=== PATIENT | female | born 1955 | race African-American/Black ===

== ENCOUNTER 2017-05-10 06:02 | Inpatient (IN) ==
[~2017-05-10 06:02] MED LIST: CLINDAMYCIN INJ 50 ML IV ONE; CLINDAMYCIN INJ 900 MG in PREMIX 1 EACH IV ONE; LACTATED RINGERS 1,000 ML IV SCH; VANCOMYCIN 1,000 MG VIAL ONE
[2017-05-10] MEDS ORDERED: IPRATROPIUM 500 MCG/2.5 ML NEB RESP TX ONE (06:28)
[2017-05-10] MEDS ORDERED: TRANEXAMIC ACID 1,000 MG/10 ML VIAL IV ONE (06:28)
[2017-05-10] MEDS ORDERED: ALBUTEROL 2.5 MG/3 ML NEB RESP TX ONE (06:28)
[2017-05-10] MEDS ORDERED: DIAZEPAM 5 MG TABLET PO ONE (06:28)
[2017-05-10] MEDS ORDERED: FAMOTIDINE 20 MG TABLET PO ONE (06:28)
[2017-05-10] MEDS ORDERED: NEOSTIGMINE 10 MG/10 ML VIAL ONE (06:39)
[2017-05-10] MEDS ORDERED: BACITRACIN OINT 0.9 GM PACK TOP ONE (06:40)
[2017-05-10] MEDS ORDERED: VANCOMYCIN INJ 1,000 MG in SODIUM CHLORIDE 0.9% 250 ML IV ONE ×2 (07:00→18:00)
[2017-05-10] MEDS ORDERED: ceFAZolin 1,000 MG in SYRINGE 1 EACH IV ONE (07:00)
[2017-05-10] MEDS: LACTATED RINGERS 1,000 ML IV SCH ×3 (07:10→14:36)
[2017-05-10] MEDS ORDERED: MAGNESIUM HYDROXIDE SUSP 30 ML UDCUP PO PRN (07:19)
[2017-05-10] MEDS ORDERED: oxyCODONE IR 5 MG TABLET PO PRN ×2 (07:19)
[2017-05-10] MEDS ORDERED: MORPHINE 2 MG/1 ML SYRINGE IV PRN ×2 (07:19)
[2017-05-10] MEDS ORDERED: diphenhydrAMINE CAP 25 MG CAPSULE PO PRN (07:19)
[2017-05-10] MEDS ORDERED: ZALEPLON 5 MG CAPSULE PO PRN (07:19)
[2017-05-10] MEDS ORDERED: ONDANSETRON 4 MG/2 ML VIAL IV PRN ×2 (07:19→08:59)
[2017-05-10] MEDS ORDERED: HYDROmorphone 2 MG/1 ML VIAL ONE (09:00)
[2017-05-10] MEDS: HYDROmorphone 2 MG/1 ML VIAL IV PRN ×4 (09:00→09:20)
[2017-05-10 09:31] LABS: Apearance,Urine CLEAR (Clear); Bilirubin,Urine Negative (Negative); Blood, Urine Negative (Negative); Glucose,Urine (UA) Negative (Negative); Ketones,Urine Negative (Negative); Mucus,Urine Occasional /LPF (Occasional); Nitrite,Urine Negative (Negative); Protein,Urine Negative; RBC,Urine <1 /HPF (0-4); Squamous Epithelial Cell,Urine Occasional /HPF (0-10); Urine Color Straw (Yellow); Urine Urobilinogen < 2.0 EU/DL (0.2-1.0); WBC,Urine <1 /HPF (0-6)
[2017-05-10] MEDS ORDERED: LABETALOL 20 MG/4 ML SYRINGE IV ONE (09:35)
[2017-05-10] MEDS ORDERED: PROPOFOL 200 MG/20 ML VIAL IV ONE (09:35)
[2017-05-10] MEDS ORDERED: ACETAMINOPHEN 1,000 MG/100 ML VIAL IV ONE (09:36)
[2017-05-10] MEDS ORDERED: fentaNYL 100 MCG/2 ML VIAL ONE (09:36)
[2017-05-10] MEDS ORDERED: SEVOFLURANE 1 UNIT/15 MINUTE INH ONE (09:36)
[2017-05-10] MEDS ORDERED: LABETALOL 100 MG/20 ML VIAL IV ONE (09:36)
[2017-05-10] MEDS ORDERED: GLYCOPYRROLATE 0.4 MG/2 ML VIAL ONE (09:36)
[2017-05-10] MEDS ORDERED: MIDAZOLAM 2 MG/2 ML VIAL ONE (09:36)
[2017-05-10] MEDS ORDERED: LACTATED RINGERS 1,000 ML IV ONE (09:36)
[2017-05-10] MEDS ORDERED: ROCURONIUM 100 MG/10 ML VIAL IV ONE (09:36)
[2017-05-10] MEDS ORDERED: DEXAMETHASONE 10 MG/1 ML VIAL ONE (09:36)
[2017-05-10] MEDS ORDERED: SODIUM CHLORIDE 0.9% 100 ML IV ONE (09:37)
[2017-05-10] MEDS: ACETAMINOPHEN 500 MG TABLET PO SCH ×3 (13:43→23:52)
[2017-05-10] MEDS: KETOROLAC 30 MG/1 ML VIAL IV SCH ×3 (13:45→21:35)
[2017-05-10] MEDS: CLINDAMYCIN INJ 900 MG in PREMIX 1 EACH IV SCH ×2 (13:51→21:39)
[2017-05-10] MEDS: amLODIPine 10 MG TABLET PO SCH (18:21)
[2017-05-10] MEDS: DOCUSATE SODIUM 100 MG CAPSULE PO SCH ×2 (18:21→21:39)
[2017-05-10] MEDS: GABAPENTIN 300 MG CAPSULE PO SCH ×2 (18:21→21:39)
[2017-05-10] MEDS: ATENOLOL/CHLORTHALIDONE 50-25 MG TABLET PO SCH (18:22)
[2017-05-10] MEDS: tiZANidine 4 MG TABLET PO SCH (18:22)
[2017-05-11] MEDS: FONDAPARINUX 2.5 MG/0.5 ML SYRINGE SUBCUT SCH (06:00)
[2017-05-11] MEDS: ACETAMINOPHEN 500 MG TABLET PO SCH (06:01)
[2017-05-11 06:51] LABS: Basophils % 0.1 % (0.0-0.8); Hematocrit 26.3 VOL% (35.7-47.0); Hemoglobin 8.9 GM/DL (12.0-16.0); Immature Granulocytes % 0.6 %; Immature Granulocytes Absolute 0.07 #; Lymphocytes # 1.5 10*3/uL (1.4-4.0); Lymphocytes % 13.3 % (21.3-54.2); Mean Corpuscular HGB Conc 33.8 GM/DL (32-36); Mean Corpuscular Hemoglobin 29 PG (27-34); Mean Corpuscular Volume 85.7 FL (87-102); Mean Platelet Volume 12.4 FL (9.6-12.0); Monocytes # 1.5 10*3/uL (0.11-0.8); Monocytes % 13.3 % (1.7-12.7); Neutrophils % 72.7 % (38.7-73.9); Platelet Count 186 T/CUMM (130-400); Red Blood Count 3.07 MC/CUMM (3.8-5.5); Red Cell Distribution Width 14.9 % (9.3-17.3)
[2017-05-11 07:19] LABS: Calcium 8.3 MG/DL (8.5-10.1); Osmolality,Calculated 283.4 MOS/KG (273-304); Potassium 3.7 MMOL/L (3.5-5.1)
[2017-05-11] MEDS: KETOROLAC 30 MG/1 ML VIAL IV SCH (07:29)
[2017-05-11] MEDS ORDERED: KETOROLAC 30 MG/1 ML VIAL IV SCH (07:30)
[2017-05-11] MEDS: DOCUSATE SODIUM 100 MG CAPSULE PO SCH ×2 (08:38→21:44)
[2017-05-11] MEDS: GABAPENTIN 300 MG CAPSULE PO SCH ×2 (08:38→21:44)
[2017-05-11] MEDS: ATENOLOL/CHLORTHALIDONE 50-25 MG TABLET PO SCH (08:39)
[2017-05-11] MEDS: tiZANidine 4 MG TABLET PO SCH (08:40)
[2017-05-11] MEDS: amLODIPine 10 MG TABLET PO SCH (08:40)
[2017-05-11] MEDS: CELECOXIB 200 MG CAPSULE PO SCH (14:15)
[2017-05-12] MEDS: FONDAPARINUX 2.5 MG/0.5 ML SYRINGE SUBCUT SCH (05:55)
[2017-05-12 06:24] LABS: Basophils % 0.2 % (0.0-0.8); Eosinophils # 0.1 10*3/uL (0.0-0.87); Eosinophils % 1.4 % (0.00-10.9); Hematocrit 25.2 VOL% (35.7-47.0); Hemoglobin 8.4 GM/DL (12.0-16.0); Immature Granulocytes % 0.7 %; Immature Granulocytes Absolute 0.07 #; Lymphocytes # 3.1 10*3/uL (1.4-4.0); Lymphocytes % 30.2 % (21.3-54.2); Mean Corpuscular HGB Conc 33.3 GM/DL (32-36); Mean Corpuscular Hemoglobin 29 PG (27-34); Mean Corpuscular Volume 87.8 FL (87-102); Mean Platelet Volume 12.1 FL (9.6-12.0); Monocytes # 1.4 10*3/uL (0.11-0.8); Monocytes % 13.9 % (1.7-12.7); Neutrophils # 5.5 10*3/uL (1.4-7.4); Neutrophils % 53.6 % (38.7-73.9); Platelet Count 177 T/CUMM (130-400); Red Blood Count 2.87 MC/CUMM (3.8-5.5); Red Cell Distribution Width 15.3 % (9.3-17.3); White Blood Count 10.3 T/CUMM (4-12)
[2017-05-12] MEDS: tiZANidine 4 MG TABLET PO SCH (09:53)
[2017-05-12] MEDS: GABAPENTIN 300 MG CAPSULE PO SCH (09:53)
[2017-05-12] MEDS: DOCUSATE SODIUM 100 MG CAPSULE PO SCH (09:53)
[2017-05-12] MEDS: ATENOLOL/CHLORTHALIDONE 50-25 MG TABLET PO SCH (09:54)
[2017-05-12] MEDS: CELECOXIB 200 MG CAPSULE PO SCH (09:54)
[2017-05-12] MEDS: amLODIPine 10 MG TABLET PO SCH (09:56)
[2017-05-12 11:34] VITALS: BP 129/60
== END 2017-05-12 12:45 | disposition home health service (06) | DRG 470 ==
LOC: N.SDSINP 06:02 → N.3E 10:07
PROVIDERS: ADMIT Orthopaedic Surgery; ATTEND Orthopaedic Surgery

== ENCOUNTER 2017-08-16 05:31 | Inpatient (IN) ==
[2017-08-09 11:31] LABS: Basophils # 0.1 10*3/uL (0.0-0.2); Basophils % 0.8 % (0.0-0.8); Eosinophils # 0.5 10*3/uL (0.0-0.87); Eosinophils % 8.4 % (0.00-10.9); Hematocrit 32.9 VOL% (35.7-47.0); Hemoglobin 10.2 GM/DL (12.0-16.0); Immature Granulocytes % 0.2 %; Immature Granulocytes Absolute 0.01 #; Lymphocytes % 32.5 % (21.3-54.2); Mean Corpuscular Hemoglobin 27 PG (27-34); Mean Corpuscular Volume 85.7 FL (87-102); Mean Platelet Volume 12.4 FL (9.6-12.0); Monocytes # 0.6 10*3/uL (0.11-0.8); Monocytes % 9.6 % (1.7-12.7); Neutrophils # 2.9 10*3/uL (1.4-7.4); Neutrophils % 48.5 % (38.7-73.9); Platelet Count 185 T/CUMM (130-400); Red Blood Count 3.84 MC/CUMM (3.8-5.5); Red Cell Distribution Width 15.9 % (9.3-17.3); White Blood Count 6.1 T/CUMM (4-12)
[2017-08-09 11:39] LABS: PT Patient Result 10.2 SECS; Partial Thromboplastin Time 24.7 SECS (0-40)
[2017-08-09 11:42] LABS: Apearance,Urine Slightly Hazy (Clear); Bilirubin,Urine Negative (Negative); Blood, Urine Negative (Negative); Glucose,Urine (UA) Negative (Negative); Hyaline Casts,Urine 15 /LPF (0-3); Ketones,Urine Negative (Negative); Mucus,Urine Occasional /LPF (Occasional); Nitrite,Urine Negative (Negative); Protein,Urine Negative; RBC,Urine <1 /HPF (0-4); Squamous Epithelial Cell,Urine Occasional /HPF (0-10); Urine Color Yellow (Yellow); Urine Specific Gravity 1.019 (1.001-1.035); Urine Urobilinogen < 2.0 EU/DL (0.2-1.0); WBC,Urine <1 /HPF (0-6)
[2017-08-09 11:55] LABS: Albumin 3.9 G/DL (3.4-5.0); Bilirubin,Total 0.4 MG/DL (0.2-1.0); Calcium 9.1 MG/DL (8.5-10.1); Potassium 3.9 MMOL/L (3.5-5.1); Total Protein 7.4 G/DL (6.4-8.3)
[2017-08-16] MEDS ORDERED: ALBUTEROL/IPRATROPIUM 3 ML NEB RESP TX ONE (06:00)
[2017-08-16] MEDS ORDERED: GABAPENTIN 400 MG CAPSULE PO ONE (06:00)
[2017-08-16] MEDS ORDERED: DIAZEPAM 5 MG TABLET PO ONE ×2 (06:00→07:00)
[2017-08-16] MEDS ORDERED: FAMOTIDINE 20 MG TABLET PO ONE ×2 (06:00→07:00)
[2017-08-16] MEDS ORDERED: ACETAMINOPHEN 500 MG TABLET PO ONE (06:00)
[2017-08-16] MEDS ORDERED: VANCOMYCIN 1,000 MG VIAL ONE (06:15)
[2017-08-16] MEDS ORDERED: CLINDAMYCIN INJ 50 ML IV ONE (06:15)
[2017-08-16] MEDS ORDERED: CLINDAMYCIN INJ 900 MG in PREMIX 1 EACH IV ONE (06:30)
[2017-08-16] MEDS ORDERED: VANCOMYCIN INJ 1,000 MG in SODIUM CHLORIDE 0.9% 250 ML IV ONE ×2 (06:30→18:00)
[2017-08-16] MEDS ORDERED: BACITRACIN OINT 0.9 GM PACK TOP ONE (06:35)
[2017-08-16] MEDS ORDERED: TRANEXAMIC ACID 1,000 MG/10 ML VIAL ONE (06:35)
[2017-08-16] MEDS ORDERED: FAMOTIDINE 20 MG TABLET ONE (06:41)
[2017-08-16] MEDS ORDERED: ACETAMINOPHEN 500 MG TABLET ONE (06:41)
[2017-08-16] MEDS ORDERED: GABAPENTIN 400 MG CAPSULE ONE (06:41)
[2017-08-16] MEDS ORDERED: DIAZEPAM 5 MG TABLET ONE (06:42)
[2017-08-16] MEDS: LACTATED RINGERS 1,000 ML IV SCH ×4 (06:45→17:30)
[2017-08-16] MEDS ORDERED: MORPHINE 4 MG/1 ML VIAL IV PRN ×2 (09:18)
[2017-08-16] MEDS ORDERED: ZALEPLON 5 MG CAPSULE PO PRN (09:18)
[2017-08-16] MEDS ORDERED: oxyCODONE IR 5 MG TABLET PO PRN (09:18)
[2017-08-16] MEDS ORDERED: diphenhydrAMINE CAP 25 MG CAPSULE PO PRN (09:18)
[2017-08-16] MEDS ORDERED: MAGNESIUM HYDROXIDE SUSP 30 ML UDCUP PO PRN (09:18)
[2017-08-16] MEDS ORDERED: SEVOFLURANE 1 UNIT/15 MINUTE INH ONE (09:42)
[2017-08-16] MEDS ORDERED: PROPOFOL 200 MG/20 ML VIAL IV ONE (09:42)
[2017-08-16] MEDS ORDERED: LIDOCAINE 1% 5 ML VIAL ONE (09:42)
[2017-08-16] MEDS ORDERED: fentaNYL 100 MCG/2 ML VIAL ONE (09:43)
[2017-08-16] MEDS ORDERED: ACETAMINOPHEN 1,000 MG/100 ML VIAL IV ONE (09:43)
[2017-08-16] MEDS ORDERED: MIDAZOLAM 2 MG/2 ML VIAL ONE (09:43)
[2017-08-16] MEDS ORDERED: PROPOFOL 500 MG/50 ML BOTTLE IV ONE (09:43)
[2017-08-16] MEDS ORDERED: PHENYLEPHRINE 1 MG/10 ML SYRINGE IV ONE (09:43)
[2017-08-16] MEDS ORDERED: LACTATED RINGERS 1,000 ML IV ONE (09:44)
[2017-08-16] MEDS ORDERED: ROCURONIUM 100 MG/10 ML VIAL IV ONE (09:44)
[2017-08-16 09:46] LABS: Apearance,Urine CLEAR (Clear); Bilirubin,Urine Negative (Negative); Blood, Urine Negative (Negative); Glucose,Urine (UA) Negative (Negative); Ketones,Urine Negative (Negative); Mucus,Urine Occasional /LPF (Occasional); Nitrite,Urine Negative (Negative); Protein,Urine Negative; RBC,Urine 2 /HPF (0-4); Urine Color Straw (Yellow); Urine Urobilinogen < 2.0 EU/DL (0.2-1.0); WBC,Urine <1 /HPF (0-6)
[2017-08-16] MEDS ORDERED: ONDANSETRON 4 MG/2 ML VIAL IV PRN (09:53)
[2017-08-16] MEDS ORDERED: HYDROmorphone 2 MG/1 ML VIAL ONE (09:53)
[2017-08-16] MEDS ORDERED: ONDANSETRON 4 MG/2 ML VIAL ONE (09:53)
[2017-08-16] MEDS: HYDROmorphone 2 MG/1 ML VIAL IV PRN ×4 (09:55→10:10)
[2017-08-16] MEDS: KETOROLAC 30 MG/1 ML VIAL IV SCH ×3 (10:08→22:44)
[2017-08-16] MEDS ORDERED: KETOROLAC 30 MG/1 ML VIAL ONE (10:08)
[2017-08-16] MEDS: CLINDAMYCIN INJ 900 MG in PREMIX 1 EACH IV SCH ×2 (14:03→22:44)
[2017-08-16] MEDS: ACETAMINOPHEN 500 MG TABLET PO SCH ×2 (14:04→20:21)
[2017-08-16] MEDS: tiZANidine 4 MG TABLET PO SCH ×2 (15:21→20:22)
[2017-08-16] MEDS: ONDANSETRON 4 MG/2 ML VIAL IV PRN (15:21)
[2017-08-16] MEDS: oxyCODONE IR 5 MG TABLET PO PRN (19:04)
[2017-08-16] MEDS: DOCUSATE SODIUM 100 MG CAPSULE PO SCH (20:22)
[2017-08-16] MEDS: GABAPENTIN 300 MG CAPSULE PO SCH (20:22)
[2017-08-16] MEDS: BUDESONIDE/FORMOTEROL 160-4.5 INHALER 6 GM INH SCH (21:55)
[2017-08-17] MEDS: LACTATED RINGERS 1,000 ML IV SCH ×3 (00:45→17:55)
[2017-08-17] MEDS: ACETAMINOPHEN 500 MG TABLET PO SCH ×2 (02:54→08:12)
[2017-08-17] MEDS: oxyCODONE IR 5 MG TABLET PO PRN (02:56)
[2017-08-17] MEDS: KETOROLAC 30 MG/1 ML VIAL IV SCH (03:58)
[2017-08-17] MEDS ORDERED: FONDAPARINUX 2.5 MG/0.5 ML SYRINGE SUBCUT SCH (06:00)
[2017-08-17 06:21] LABS: Calcium 7.7 MG/DL (8.5-10.1); Potassium 3.5 MMOL/L (3.5-5.1)
[2017-08-17 07:15] LABS: Basophils % 0.1 % (0.0-0.8); Eosinophils # 0.1 10*3/uL (0.0-0.87); Eosinophils % 0.8 % (0.00-10.9); Hematocrit 25.1 VOL% (35.7-47.0); Immature Granulocytes % 0.4 %; Immature Granulocytes Absolute 0.03 #; Lymphocytes # 1.5 10*3/uL (1.4-4.0); Lymphocytes % 17.8 % (21.3-54.2); Mean Corpuscular HGB Conc 31.9 GM/DL (32-36); Mean Corpuscular Hemoglobin 27 PG (27-34); Mean Corpuscular Volume 85.1 FL (87-102); Mean Platelet Volume 12.9 FL (9.6-12.0); Monocytes # 0.9 10*3/uL (0.11-0.8); Monocytes % 10.7 % (1.7-12.7); Neutrophils # 5.8 10*3/uL (1.4-7.4); Neutrophils % 70.2 % (38.7-73.9); Platelet Count 139 T/CUMM (130-400); Red Blood Count 2.95 MC/CUMM (3.8-5.5); Red Cell Distribution Width 16.3 % (9.3-17.3); White Blood Count 8.3 T/CUMM (4-12)
[2017-08-17] MEDS: ONDANSETRON 4 MG/2 ML VIAL IV PRN (08:12)
[2017-08-17] MEDS ORDERED: PROMETHAZINE 25 MG/1 ML VIAL ONE (08:26)
[2017-08-17] MEDS ORDERED: PROMETHAZINE 25 MG/1 ML VIAL IM PRN (08:33)
[2017-08-17] MEDS ORDERED: CHLORTHALIDONE 25 MG TABLET PO SCH (09:00)
[2017-08-17] MEDS: tiZANidine 4 MG TABLET PO SCH ×3 (09:06→21:22)
[2017-08-17] MEDS: amLODIPine 10 MG TABLET PO SCH (09:07)
[2017-08-17] MEDS: ATENOLOL 50 MG TABLET PO SCH (09:07)
[2017-08-17] MEDS: MONTELUKAST 10 MG TABLET PO SCH (09:07)
[2017-08-17] MEDS: GABAPENTIN 300 MG CAPSULE PO SCH ×2 (09:07→21:22)
[2017-08-17] MEDS: ALLOPURINOL 300 MG TABLET PO SCH (09:08)
[2017-08-17] MEDS: DOCUSATE SODIUM 100 MG CAPSULE PO SCH ×2 (09:08→21:22)
[2017-08-17] MEDS: CHOLECALCIFEROL 1,000 UNIT TABLET PO SCH (09:09)
[2017-08-17] MEDS: BUDESONIDE/FORMOTEROL 160-4.5 INHALER 6 GM INH SCH ×2 (09:12→21:21)
[2017-08-17] MEDS ORDERED: CELECOXIB 200 MG CAPSULE PO SCH (15:19)
[2017-08-18] MEDS: LACTATED RINGERS 1,000 ML IV SCH ×2 (01:08→10:10)
[2017-08-18 07:21] LABS: Mean Corpuscular Hemoglobin 28 PG (27-34); Monocytes # 0.8 10*3/uL (0.11-0.8)
[2017-08-18 07:33] LABS: Basophils % 0.1 % (0.0-0.8); Eosinophils # 0.4 10*3/uL (0.0-0.87); Eosinophils % 4.2 % (0.00-10.9); Hematocrit 21.8 VOL% (35.7-47.0); Hemoglobin 7.2 GM/DL (12.0-16.0); Immature Granulocytes % 0.5 %; Immature Granulocytes Absolute 0.04 #; Lymphocytes # 1.9 10*3/uL (1.4-4.0); Lymphocytes % 21.5 % (21.3-54.2); Mean Corpuscular Volume 83.8 FL (87-102); Mean Platelet Volume 13.1 FL (9.6-12.0); Monocytes % 8.5 % (1.7-12.7); Neutrophils # 5.8 10*3/uL (1.4-7.4); Neutrophils % 65.2 % (38.7-73.9); Platelet Count 131 T/CUMM (130-400); Red Cell Distribution Width 16.5 % (9.3-17.3); White Blood Count 8.9 T/CUMM (4-12)
[2017-08-18 08:03] LABS: Calcium 7.7 MG/DL (8.5-10.1); Osmolality,Calculated 293.1 MOS/KG (273-304); Potassium 3.5 MMOL/L (3.5-5.1)
[2017-08-18] MEDS: MONTELUKAST 10 MG TABLET PO SCH (09:40)
[2017-08-18] MEDS: tiZANidine 4 MG TABLET PO SCH ×3 (09:40→21:12)
[2017-08-18] MEDS: ALLOPURINOL 300 MG TABLET PO SCH (09:41)
[2017-08-18] MEDS: DOCUSATE SODIUM 100 MG CAPSULE PO SCH ×2 (09:41→21:12)
[2017-08-18] MEDS: GABAPENTIN 300 MG CAPSULE PO SCH ×2 (09:41→21:11)
[2017-08-18] MEDS: BUDESONIDE/FORMOTEROL 160-4.5 INHALER 6 GM INH SCH ×2 (09:42→21:10)
[2017-08-18] MEDS: ATENOLOL 50 MG TABLET PO SCH (09:42)
[2017-08-18] MEDS: amLODIPine 10 MG TABLET PO SCH (10:10)
[2017-08-18] MEDS: CHOLECALCIFEROL 1,000 UNIT TABLET PO SCH (10:48)
[2017-08-18] MEDS ORDERED: SODIUM CHLORIDE 0.9% 1,000 ML IV PRN (11:06)
[2017-08-18] MEDS ORDERED: LACTATED RINGERS 1,000 ML IV SCH (11:30)
[2017-08-19 07:09] LABS: Basophils % 0.2 % (0.0-0.8); Eosinophils # 0.4 10*3/uL (0.0-0.87); Eosinophils % 3.6 % (0.00-10.9); Hematocrit 28.7 VOL% (35.7-47.0); Immature Granulocytes % 0.6 %; Immature Granulocytes Absolute 0.07 #; Lymphocytes % 16.4 % (21.3-54.2); Mean Corpuscular HGB Conc 32.8 GM/DL (32-36); Mean Corpuscular Hemoglobin 28 PG (27-34); Mean Corpuscular Volume 84.9 FL (87-102); Mean Platelet Volume 12.6 FL (9.6-12.0); Monocytes % 8.4 % (1.7-12.7); Neutrophils # 8.6 10*3/uL (1.4-7.4); Neutrophils % 70.8 % (38.7-73.9); Platelet Count 147 T/CUMM (130-400); Red Cell Distribution Width 16.2 % (9.3-17.3)
[2017-08-19 07:11] LABS: Hemoglobin 9.4 GM/DL (12.0-16.0); Red Blood Count 3.38 MC/CUMM (3.8-5.5); White Blood Count 12.2 T/CUMM (4-12)
[2017-08-19 07:19] LABS: Calcium 8.5 MG/DL (8.5-10.1); Potassium 3.8 MMOL/L (3.5-5.1)
[2017-08-19] MEDS ORDERED: FUROSEMIDE 40 MG/4 ML VIAL IV ONE (07:56)
[2017-08-19] MEDS ORDERED: LEVOFLOXACIN INJ 250 MG in PREMIX 1 EACH IV SCH (08:00)
[2017-08-19] MEDS: amLODIPine 10 MG TABLET PO SCH (08:22)
[2017-08-19] MEDS: tiZANidine 4 MG TABLET PO SCH ×3 (08:22→20:35)
[2017-08-19] MEDS: DOCUSATE SODIUM 100 MG CAPSULE PO SCH ×2 (08:23→20:35)
[2017-08-19] MEDS: hydrALAZINE 25 MG TABLET PO SCH ×2 (08:23→20:34)
[2017-08-19] MEDS: MONTELUKAST 10 MG TABLET PO SCH (08:23)
[2017-08-19] MEDS: GABAPENTIN 300 MG CAPSULE PO SCH ×2 (08:23→20:35)
[2017-08-19] MEDS: CHOLECALCIFEROL 1,000 UNIT TABLET PO SCH (08:23)
[2017-08-19] MEDS: ATENOLOL 50 MG TABLET PO SCH (08:23)
[2017-08-19] MEDS: ALLOPURINOL 300 MG TABLET PO SCH (08:24)
[2017-08-19] MEDS: methylPREDNISolone SOD SUC 40 MG/1 ML VIAL IV SCH ×2 (08:36→20:37)
[2017-08-19] MEDS: ONDANSETRON 4 MG/2 ML VIAL IV PRN (08:38)
[2017-08-19] MEDS: BUDESONIDE/FORMOTEROL 160-4.5 INHALER 6 GM INH SCH ×2 (08:45→20:34)
[2017-08-19] MEDS ORDERED: ACETAMINOPHEN 325 MG TABLET PO PRN (09:40)
[2017-08-19] MEDS: ASPIRIN EC 325 MG TABLET PO SCH (10:29)
[2017-08-19] MEDS: ALBUTEROL/IPRATROPIUM 3 ML NEB RESP TX SCH (14:20)
[2017-08-20] MEDS: ALBUTEROL/IPRATROPIUM 3 ML NEB RESP TX SCH ×2 (00:16→07:20)
[2017-08-20 06:03] LABS: Calcium 8.8 MG/DL (8.5-10.1); Potassium 3.6 MMOL/L (3.5-5.1)
[2017-08-20] MEDS ORDERED: methylPREDNISolone ACETATE 40 MG/1 ML VIAL IM ONE (07:58)
[2017-08-20] MEDS ORDERED: LEVOFLOXACIN 250 MG TABLET PO SCH (09:00)
[2017-08-20] MEDS: hydrALAZINE 25 MG TABLET PO SCH (09:51)
[2017-08-20] MEDS: DOCUSATE SODIUM 100 MG CAPSULE PO SCH (09:52)
[2017-08-20] MEDS: ASPIRIN EC 325 MG TABLET PO SCH (09:52)
[2017-08-20] MEDS: amLODIPine 10 MG TABLET PO SCH (09:52)
[2017-08-20] MEDS: GABAPENTIN 300 MG CAPSULE PO SCH (09:52)
[2017-08-20] MEDS: CHOLECALCIFEROL 1,000 UNIT TABLET PO SCH (09:53)
[2017-08-20] MEDS: ALLOPURINOL 300 MG TABLET PO SCH (09:53)
[2017-08-20] MEDS: ATENOLOL 50 MG TABLET PO SCH (09:53)
[2017-08-20] MEDS: tiZANidine 4 MG TABLET PO SCH ×2 (09:53→14:46)
[2017-08-20] MEDS: MONTELUKAST 10 MG TABLET PO SCH (09:53)
[2017-08-20] MEDS: BUDESONIDE/FORMOTEROL 160-4.5 INHALER 6 GM INH SCH (09:58)
[2017-08-20 11:11] VITALS: BP 151/74
== END 2017-08-20 15:35 | disposition home health service (06) | DRG 470 ==
LOC: N.OR 05:31 → N.SDSINP 05:32 → EDBD 07:30 → N.3E 08:14
PROVIDERS: ADMIT Orthopaedic Surgery; ATTEND Orthopaedic Surgery

== ENCOUNTER 2021-11-19 05:46 | Observation (INO) ==
[2021-11-19] MEDS ORDERED: fentaNYL 100 MCG/2 ML VIAL ONE (06:06)
[2021-11-19] MEDS ORDERED: LIDOCAINE 2% 5 ML VIAL ONE (06:06)
[2021-11-19] MEDS ORDERED: ONDANSETRON 4 MG/2 ML VIAL ONE ×2 (06:06→10:14)
[2021-11-19] MEDS ORDERED: DEXAMETHASONE 4 MG/1 ML VIAL ONE ×3 (06:06→10:14)
[2021-11-19] MEDS ORDERED: MIDAZOLAM 2 MG/2 ML VIAL ONE (06:07)
[2021-11-19] MEDS ORDERED: propofoL 200 MG/20 ML VIAL IV ONE (06:09)
[2021-11-19] MEDS ORDERED: CLINDAMYCIN INJ 900 MG/50 ML PREMIX IV ONE (06:30)
[2021-11-19] MEDS ORDERED: VANCOMYCIN INJ 1,000 MG in SODIUM CHLORIDE 0.9% 250 ML IV ONE (06:30)
[2021-11-19] MEDS ORDERED: ROPIVACAINE 0.5% 30 ML VIAL ONE (06:32)
[2021-11-19] MEDS ORDERED: GABAPENTIN 400 MG CAPSULE ONE (06:35)
[2021-11-19] MEDS ORDERED: ACETAMINOPHEN 500 MG TABLET ONE (06:35)
[2021-11-19] MEDS ORDERED: FAMOTIDINE 20 MG TABLET ONE (06:35)
[2021-11-19 06:36] LABS: INR 0.9; PT Patient Result 10.5 SECS (10.1-12.1); Partial Thromboplastin Time 28.2 SECS (23.7-32.9)
[2021-11-19] MEDS ORDERED: FAMOTIDINE 20 MG TABLET PO ONE (06:37)
[2021-11-19] MEDS ORDERED: GABAPENTIN 400 MG CAPSULE PO ONE (06:37)
[2021-11-19] MEDS ORDERED: ACETAMINOPHEN 500 MG TABLET PO ONE (06:37)
[2021-11-19] MEDS ORDERED: ALBUTEROL/IPRATROPIUM 3 ML NEB RESP TX STA (06:50)
[2021-11-19] MEDS ORDERED: BACITRACIN OINT 0.9 GM PACK TOP ONE (06:55)
[2021-11-19] MEDS ORDERED: LACTATED RINGERS 1,000 ML IV SCH (07:00)
[2021-11-19] MEDS ORDERED: MAGNESIUM HYDROXIDE SUSP 30 ML UDCUP PO PRN (07:24)
[2021-11-19] MEDS ORDERED: MORPHINE 2 MG/1 ML SYRINGE IV PRN (07:24)
[2021-11-19] MEDS ORDERED: diphenhydrAMINE CAP 25 MG CAPSULE PO PRN (07:24)
[2021-11-19] MEDS ORDERED: ZALEPLON 5 MG CAPSULE PO PRN (07:24)
[2021-11-19] MEDS ORDERED: hydrALAZINE 20 MG/1 ML VIAL ONE (07:26)
[2021-11-19] MEDS ORDERED: TRANEXAMIC ACID 1,000 MG/10 ML VIAL ONE (07:59)
[2021-11-19] MEDS ORDERED: SEVOFLURANE 1 UNIT/15 MINUTE INH ONE ×2 (07:59→08:21)
[2021-11-19] MEDS ORDERED: PHENYLEPHRINE 1 MG/10 ML SYRINGE IV ONE (08:21)
[2021-11-19] MEDS ORDERED: ePHEDrine 50 MG/ML VIAL ONE (08:22)
[2021-11-19] MEDS ORDERED: NEOSTIGMINE 10 MG/10 ML VIAL ONE (08:29)
[2021-11-19] MEDS ORDERED: GLYCOPYRROLATE 0.4 MG/2 ML VIAL ONE (08:29)
[2021-11-19] MEDS ORDERED: HYDROmorphone 1 MG/1 ML SYRINGE ONE (09:01)
[2021-11-19] MEDS: HYDROmorphone 1 MG/1 ML SYRINGE IV PRN ×4 (09:03→09:41)
[2021-11-19] MEDS: ONDANSETRON 4 MG/2 ML VIAL IV PRN ×2 (09:04→13:58)
[2021-11-19] MEDS: KETOROLAC 15 MG/1 ML VIAL IV SCH ×3 (10:13→20:24)
[2021-11-19] MEDS: LACTATED RINGERS 1,000 ML IV SCH ×2 (10:37→15:44)
[2021-11-19] MEDS: CIPROFLOXACIN 500 MG TABLET PO SCH ×2 (10:38→16:19)
[2021-11-19] MEDS: DOCUSATE SODIUM 100 MG CAPSULE PO SCH ×2 (10:38→20:25)
[2021-11-19] MEDS: POTASSIUM CHLORIDE 20 MEQ TABLET PO SCH (10:38)
[2021-11-19] MEDS: MONTELUKAST 10 MG TABLET PO SCH (10:38)
[2021-11-19] MEDS ORDERED: SUGAMMADEX 200 MG/2 ML VIAL IV ONE (10:50)
[2021-11-19] MEDS: CLINDAMYCIN INJ 900 MG/50 ML PREMIX IV SCH (16:19)
[2021-11-19] MEDS ORDERED: PROMETHAZINE 25 MG/1 ML VIAL IM PRN (16:52)
[2021-11-19] MEDS ORDERED: ONDANSETRON 4 MG/2 ML VIAL IV PRN (17:12)
[2021-11-19] MEDS: GABAPENTIN 600 MG TABLET PO SCH (20:24)
[2021-11-19] MEDS: MYCOPHENOLATE MOFETIL 250 MG CAPSULE PO SCH (20:25)
[2021-11-20] MEDS: LACTATED RINGERS 1,000 ML IV SCH (00:41)
[2021-11-20] MEDS: CLINDAMYCIN INJ 900 MG/50 ML PREMIX IV SCH (00:41)
[2021-11-20] MEDS: FONDAPARINUX 2.5 MG/0.5 ML SYRINGE SUBCUT SCH (04:20)
[2021-11-20 05:29] LABS: Basophils % 0.1 % (0.0-0.8); Eosinophils % 0.4 % (0.00-10.9); Hematocrit 33.8 VOL% (35.7-47.0); Hemoglobin 10.9 GM/DL (12.0-16.0); Immature Granulocytes % 0.4 %; Immature Granulocytes Absolute 0.03 #; Lymphocytes # 1.2 10*3/uL (1.4-4.0); Lymphocytes % 15.2 % (21.3-54.2); Mean Corpuscular HGB Conc 32.2 GM/DL (32-36); Mean Corpuscular Volume 88.5 FL (87-102); Mean Platelet Volume 12.9 FL (9.6-12.0); Monocytes # 1.1 10*3/uL (0.11-0.8); Monocytes % 13.2 % (1.7-12.7); Neutrophils % 70.7 % (38.7-73.9); Platelet Count 127 T/CUMM (130-400); Red Blood Count 3.82 MC/CUMM (3.8-5.5); Red Cell Distribution Width 14.4 % (9.3-17.3); White Blood Count 8.1 T/CUMM (4-12)
[2021-11-20 05:45] LABS: Calcium 8.8 MG/DL (8.5-10.1); Osmolality,Calculated 280.8 MOS/KG (273-304); Potassium 3.9 MMOL/L (3.5-5.1)
[2021-11-20] MEDS: GABAPENTIN 300 MG CAPSULE PO SCH (09:01)
[2021-11-20] MEDS: DOCUSATE SODIUM 100 MG CAPSULE PO SCH ×2 (09:01→21:01)
[2021-11-20] MEDS: PANTOPRAZOLE 40 MG TABLET PO SCH (09:01)
[2021-11-20] MEDS: MYCOPHENOLATE MOFETIL 250 MG CAPSULE PO SCH ×2 (09:01→21:01)
[2021-11-20] MEDS: CIPROFLOXACIN 500 MG TABLET PO SCH ×2 (09:02→18:01)
[2021-11-20] MEDS: POTASSIUM CHLORIDE 20 MEQ TABLET PO SCH (09:02)
[2021-11-20] MEDS: LOSARTAN 50 MG TABLET PO SCH (09:02)
[2021-11-20] MEDS: MONTELUKAST 10 MG TABLET PO SCH (09:02)
[2021-11-20] MEDS: atenoloL 50 MG TABLET PO SCH (09:02)
[2021-11-20] MEDS: CHLORTHALIDONE 25 MG TABLET PO SCH (09:02)
[2021-11-20] MEDS: GABAPENTIN 600 MG TABLET PO SCH (21:01)
[2021-11-21] MEDS: MORPHINE 2 MG/1 ML SYRINGE IV PRN ×2 (01:37→23:54)
[2021-11-21] MEDS: FONDAPARINUX 2.5 MG/0.5 ML SYRINGE SUBCUT SCH (04:55)
[2021-11-21] MEDS ORDERED: ALBUTEROL/IPRATROPIUM 3 ML NEB RESP TX ONE (05:01)
[2021-11-21 05:28] LABS: Basophils % 0.3 % (0.0-0.8); Eosinophils # 0.3 10*3/uL (0.0-0.87); Eosinophils % 3.8 % (0.00-10.9); Hematocrit 28.9 VOL% (35.7-47.0); Hemoglobin 9.2 GM/DL (12.0-16.0); Immature Granulocytes % 0.4 %; Immature Granulocytes Absolute 0.03 #; Lymphocytes # 1.7 10*3/uL (1.4-4.0); Lymphocytes % 21.6 % (21.3-54.2); Mean Corpuscular HGB Conc 31.8 GM/DL (32-36); Mean Corpuscular Volume 90.6 FL (87-102); Monocytes # 1.2 10*3/uL (0.11-0.8); Monocytes % 14.5 % (1.7-12.7); Neutrophils % 59.4 % (38.7-73.9); Platelet Count 163 T/CUMM (130-400); Red Blood Count 3.19 MC/CUMM (3.8-5.5); Red Cell Distribution Width 14.5 % (9.3-17.3); White Blood Count 7.9 T/CUMM (4-12)
[2021-11-21] MEDS: atenoloL 50 MG TABLET PO SCH (08:45)
[2021-11-21] MEDS: POTASSIUM CHLORIDE 20 MEQ TABLET PO SCH (08:45)
[2021-11-21] MEDS: DOCUSATE SODIUM 100 MG CAPSULE PO SCH ×2 (08:45→21:00)
[2021-11-21] MEDS: GABAPENTIN 300 MG CAPSULE PO SCH (08:45)
[2021-11-21] MEDS: PANTOPRAZOLE 40 MG TABLET PO SCH (08:45)
[2021-11-21] MEDS: CIPROFLOXACIN 500 MG TABLET PO SCH ×2 (08:45→17:07)
[2021-11-21] MEDS: LOSARTAN 50 MG TABLET PO SCH (08:46)
[2021-11-21] MEDS: MYCOPHENOLATE MOFETIL 250 MG CAPSULE PO SCH ×2 (08:46→21:00)
[2021-11-21] MEDS: CHLORTHALIDONE 25 MG TABLET PO SCH (08:46)
[2021-11-21] MEDS: MONTELUKAST 10 MG TABLET PO SCH (08:46)
[2021-11-21] MEDS: ALBUTEROL 1.25 MG/3 ML NEB RESP TX PRN (19:05)
[2021-11-21] MEDS: GABAPENTIN 600 MG TABLET PO SCH (21:00)
[2021-11-22] MEDS: ALBUTEROL 1.25 MG/3 ML NEB RESP TX PRN ×2 (01:02→13:25)
[2021-11-22] MEDS: FONDAPARINUX 2.5 MG/0.5 ML SYRINGE SUBCUT SCH (04:28)
[2021-11-22 05:07] LABS: Basophils % 0.5 % (0.0-0.8); Eosinophils # 0.4 10*3/uL (0.0-0.87); Eosinophils % 4.5 % (0.00-10.9); Hematocrit 31.6 VOL% (35.7-47.0); Hemoglobin 9.8 GM/DL (12.0-16.0); Immature Granulocytes % 0.6 %; Immature Granulocytes Absolute 0.05 #; Lymphocytes # 2.1 10*3/uL (1.4-4.0); Lymphocytes % 23.8 % (21.3-54.2); Mean Corpuscular Volume 91.6 FL (87-102); Mean Platelet Volume 11.7 FL (9.6-12.0); Monocytes # 1.4 10*3/uL (0.11-0.8); Monocytes % 15.7 % (1.7-12.7); Neutrophils % 54.9 % (38.7-73.9); Platelet Count 181 T/CUMM (130-400); Red Blood Count 3.45 MC/CUMM (3.8-5.5); Red Cell Distribution Width 14.6 % (9.3-17.3); White Blood Count 8.9 T/CUMM (4-12)
[2021-11-22 05:41] LABS: Eosinophils 7 % (0-10); Hypochromia Slight; Lymphocytes 18 % (20-55); Microcytosis 1+; Total Cells Counted 100
[2021-11-22] MEDS: POTASSIUM CHLORIDE 20 MEQ TABLET PO SCH (08:19)
[2021-11-22] MEDS: LOSARTAN 50 MG TABLET PO SCH (08:19)
[2021-11-22] MEDS: MYCOPHENOLATE MOFETIL 250 MG CAPSULE PO SCH ×2 (08:19→20:42)
[2021-11-22] MEDS: MONTELUKAST 10 MG TABLET PO SCH (08:19)
[2021-11-22] MEDS: CIPROFLOXACIN 500 MG TABLET PO SCH ×2 (08:20→17:20)
[2021-11-22] MEDS: atenoloL 50 MG TABLET PO SCH (08:20)
[2021-11-22] MEDS: PANTOPRAZOLE 40 MG TABLET PO SCH (08:20)
[2021-11-22] MEDS: CHLORTHALIDONE 25 MG TABLET PO SCH (08:20)
[2021-11-22] MEDS: DOCUSATE SODIUM 100 MG CAPSULE PO SCH ×2 (08:20→20:43)
[2021-11-22] MEDS: GABAPENTIN 300 MG CAPSULE PO SCH (08:20)
[2021-11-22] MEDS: GABAPENTIN 600 MG TABLET PO SCH (20:42)
[2021-11-23] MEDS: ALBUTEROL 1.25 MG/3 ML NEB RESP TX PRN (00:05)
[2021-11-23] MEDS: FONDAPARINUX 2.5 MG/0.5 ML SYRINGE SUBCUT SCH (06:25)
[2021-11-23] MEDS: CIPROFLOXACIN 500 MG TABLET PO SCH ×2 (09:08→16:21)
[2021-11-23] MEDS: MONTELUKAST 10 MG TABLET PO SCH (09:08)
[2021-11-23] MEDS: GABAPENTIN 300 MG CAPSULE PO SCH (09:08)
[2021-11-23] MEDS: POTASSIUM CHLORIDE 20 MEQ TABLET PO SCH (09:08)
[2021-11-23] MEDS: MYCOPHENOLATE MOFETIL 250 MG CAPSULE PO SCH ×2 (09:08→21:40)
[2021-11-23] MEDS: atenoloL 50 MG TABLET PO SCH (09:09)
[2021-11-23] MEDS: CHLORTHALIDONE 25 MG TABLET PO SCH (09:09)
[2021-11-23] MEDS: DOCUSATE SODIUM 100 MG CAPSULE PO SCH ×2 (09:09→23:33)
[2021-11-23] MEDS: PANTOPRAZOLE 40 MG TABLET PO SCH (09:09)
[2021-11-23] MEDS: LOSARTAN 50 MG TABLET PO SCH (09:09)
[2021-11-23] MEDS: GABAPENTIN 600 MG TABLET PO SCH (21:40)
[2021-11-24] MEDS: ALBUTEROL 1.25 MG/3 ML NEB RESP TX PRN ×2 (00:15→23:30)
[2021-11-24] MEDS: FONDAPARINUX 2.5 MG/0.5 ML SYRINGE SUBCUT SCH (05:20)
[2021-11-24] MEDS: CIPROFLOXACIN 500 MG TABLET PO SCH ×2 (08:43→16:25)
[2021-11-24] MEDS: MYCOPHENOLATE MOFETIL 250 MG CAPSULE PO SCH ×2 (08:44→20:05)
[2021-11-24] MEDS: GABAPENTIN 300 MG CAPSULE PO SCH (08:44)
[2021-11-24] MEDS: MONTELUKAST 10 MG TABLET PO SCH (08:45)
[2021-11-24] MEDS: atenoloL 50 MG TABLET PO SCH (08:45)
[2021-11-24] MEDS: PANTOPRAZOLE 40 MG TABLET PO SCH (08:46)
[2021-11-24] MEDS: DOCUSATE SODIUM 100 MG CAPSULE PO SCH ×2 (08:47→20:05)
[2021-11-24] MEDS: LOSARTAN 50 MG TABLET PO SCH (08:47)
[2021-11-24] MEDS: POTASSIUM CHLORIDE 20 MEQ TABLET PO SCH (08:47)
[2021-11-24] MEDS: CHLORTHALIDONE 25 MG TABLET PO SCH (09:00)
[2021-11-24] MEDS: GABAPENTIN 600 MG TABLET PO SCH (20:05)
[2021-11-25] MEDS: FONDAPARINUX 2.5 MG/0.5 ML SYRINGE SUBCUT SCH (05:30)
[2021-11-25] MEDS: GABAPENTIN 300 MG CAPSULE PO SCH (08:27)
[2021-11-25] MEDS: POTASSIUM CHLORIDE 20 MEQ TABLET PO SCH (08:28)
[2021-11-25] MEDS: LOSARTAN 50 MG TABLET PO SCH (08:28)
[2021-11-25] MEDS: DOCUSATE SODIUM 100 MG CAPSULE PO SCH (08:28)
[2021-11-25] MEDS: MYCOPHENOLATE MOFETIL 250 MG CAPSULE PO SCH (08:28)
[2021-11-25] MEDS: PANTOPRAZOLE 40 MG TABLET PO SCH (08:29)
[2021-11-25] MEDS: atenoloL 50 MG TABLET PO SCH (08:29)
[2021-11-25] MEDS: MONTELUKAST 10 MG TABLET PO SCH (08:29)
[2021-11-25] MEDS: CHLORTHALIDONE 25 MG TABLET PO SCH (08:29)
[2021-11-25 11:38] VITALS: BP 152/70
== END 2021-11-25 14:30 | disposition swing bed (61) ==
LOC: N.OR 05:46 → N.SDSINP 05:46 → N.3E 05:46 → N.SDSINP 05:48 → N.3E 10:05 → UNDODISOB 11-25 14:30
PROVIDERS: ADMIT Orthopaedic Surgery; ATTEND Orthopaedic Surgery